=== PATIENT | female | born 1980 | race American Indian/Alaskan Native ===

== ENCOUNTER 2017-01-12 20:16 | Emergency (ER) | payer MEDICAID ==
[2017-01-12] MEDS ORDERED: NACL 0.9% 1000 ML 1,000 ML IV ONE (20:30)
[2017-01-12] MEDS ORDERED: NACL 0.9% 1000 ML 1,000 ML ONE (21:17)
[2017-01-12 21:29] LABS: Basophils % (Auto) 0.8 % (0.0-1.8); Eosinophils % (Auto) 0.2 % (0.0-4.3); Hematocrit 40.9 % (30.3-42.9); Hemoglobin 13.2 gm/dl (10.1-14.3); Mean Corpuscular HGB Conc 32 % (30-34); Mean Corpuscular Volume 80 fl (79-97); Red Blood Count 5.12 M/mm3 (3.65-5.03); Red Cell Distribution Width 14.2 % (13.2-15.2); White Blood Count 8.7 K/mm3 (4.5-11.0)
[2017-01-12 21:30] LABS: Mean Corpuscular Hemoglobin 26 pg (28-32)
[2017-01-12 21:47] LABS: Alanine Aminotransferase 50 units/L (7-56); Albumin 3.2 g/dL (3.9-5); Albumin/Globulin Ratio 1.1 %; Alkaline Phosphatase 70 units/L (35-129); Anion Gap 18 mmol/L; Blood Urea Nitrogen 10 mg/dL (7-17); Calcium 7.7 mg/dL (8.4-10.2); Carbon Dioxide 20 mmol/L (22-30); Chloride 101.7 mmol/L (98-107); Glucose 266 mg/dL (65-100); Sodium 136 mmol/L (137-145)
[2017-01-12 23:04] VITALS: BP 121/67
[2017-01-13 00:59] LABS: Bilirubin,Urine NEG (Negative); Blood,Urine NEG (Negative); Ketones,Urine 20 mg/dL (Negative); Leukocyte Esterase,Urine SM (Negative); Mucus,Urine FEW /HPF; Nitrite,Urine NEG (Negative); Protein,Urine <15 mg/dL mg/dL (Negative); Urobilinogen,Urine < 2.0 mg/dL (<2.0)
--- NOTE | 2017-01-13 01:10 | Emergency Department Report ---
ED Syncope HPI - General Chief Complaint: Syncope Stated Complaint: SYNCOPE/GENERAL WEAKNESS Time Seen by Provider: 01/12/17 21:56 Source: patient Exam Limitations: no limitations - History of Present Illness Initial Comments: 36-year-old female with past history of diabetes presenting to the [facility] complaint of syncopal episode. Patient states early in the day she donated blood and felt a lightheaded throughout the day after. Patient admits while she was at home she went from a seated to standing position and then had a syncopal episode. Patient did not hit her head. Patient states family member was able to get her before she fell and hit her head. Patient states she had brief LOC. When she opened her eyes she was back to her normal mental status. There were no episodes of confusion. There was no generalized jerking her extremities. Patient denies symptoms prior to the episode. Patient denies: headache, neck pain, chest pain, shortness of breath, abdominal pain. Currently patient has no complaints. Patient has no history of DVT/PE. Timing/Prior Episodes: single episode today Precipitating Factors: Positive: none Context: standing Loss of Consciousness: brief (seconds) Current Symptoms: back to normal - Related Data Allergies/Adverse Reactions: Allergies amoxicillin Allergy (Verified 09/18/16 22:18) Itching Home Medications: Ambulatory Orders Acetaminophen/Codeine [Tylenol #3] 1 tab PO Q6H PRN #12 tab 09/19/16 Clindamycin [Clindamycin CAP] 450 mg PO Q8HR #30 capsule 09/19/16 Ibuprofen [Motrin 800 MG tab] 800 mg PO Q8HR PRN #30 tablet 09/19/16 ED Review of Systems ROS: Stated complaint: SYNCOPE/GENERAL WEAKNESS Other details as noted in HPI Constitutional: denies: chills, fever Eyes: denies: eye pain, eye discharge, vision change ENT: denies: ear pain, throat pain Respiratory: denies: cough, shortness of breath, wheezing Cardiovascular: syncope. denies: chest pain, palpitations, dyspnea on exertion , edema, paroxysmal nocturnal dyspnea Endocrine: no symptoms reported Gastrointestinal: denies: abdominal pain, nausea, diarrhea Genitourinary: denies: urgency, dysuria, discharge Musculoskeletal: denies: back pain, joint swelling, arthralgia Skin: denies: rash, lesions Neurological: denies: headache, weakness, paresthesias Psychiatric: denies: anxiety, depression Hematological/Lymphatic: denies: easy bleeding, easy bruising ED Past Medical Hx - Past Medical History Hx Diabetes: Yes (diet) - Surgical History Additional Surgical History: hernia,cholelithiasis - Social History Smoking Status: Never Smoker Substance Use Type: None - Medications Home Medications: Home Medications Medication Instructions Recorded Confirmed Last Taken Type Acetaminophen/Codeine [Tylenol #3] 1 tab PO Q6H PRN #12 tab 09/19/16 Unknown Rx Clindamycin [Clindamycin CAP] 450 mg PO Q8HR #30 capsule 09/19/16 Unknown Rx Ibuprofen [Motrin 800 MG tab] 800 mg PO Q8HR PRN #30 tablet 09/19/16 Unknown Rx ED Physical Exam - General Limitations: No Limitations General appearance: alert, in no apparent distress - Head Head exam: Present: atraumatic, normocephalic - Eye Eye exam: Present: normal appearance - ENT ENT exam: Present: mucous membranes moist - Neck Neck exam: Present: normal inspection - Respiratory Respiratory exam: Present: normal lung sounds bilaterally. Absent: respiratory distress - Cardiovascular Cardiovascular Exam: Present: regular rate, normal rhythm. Absent: systolic murmur, diastolic murmur, rubs, gallop - GI/Abdominal GI/Abdominal exam: Present: soft, normal bowel sounds - Extremities Exam Extremities exam: Present: normal inspection - Back Exam Back exam: Present: normal inspection - Neurological Exam Neurological exam: Present: alert, oriented X3 - Psychiatric Psychiatric exam: Present: normal affect, normal mood - Skin Skin exam: Present: warm, dry, intact, normal color. Absent: rash ED Course Vital Signs 01/12/17 01/12/17 01/12/17 20:55 20:58 21:31 Temperature 97.9 F Pulse Rate 89 86 Respiratory 12 12 12 Rate Blood Pressure 106/76 112/67 [Left] O2 Sat by Pulse 100 100 100 Oximetry 01/12/17 23:03 Temperature Pulse Rate 93 H Respiratory 12 Rate Blood Pressure 121/67 [Left] O2 Sat by Pulse 99 Oximetry - Reevaluation(s) Reevaluation #1: 01/13/17 01:08 She resting comfortably no complaints, she agrees she is stable discharge home. ED Medical Decision Making - Lab Data Result diagrams: 01/12/17 21:14 01/12/17 21:14 - EKG Data -: EKG Interpreted by Me EKG shows normal: sinus rhythm (90), axis (upright ), intervals (QTC 442), QRS complexes (normal ), ST-T waves (no elevation ) - EKG Data Interpretation: no acute changes, normal EKG - Medical Decision Making [age] female past medical history presenting to the emergency Department after syncopal episode. Likely episode secondary to vasovagal reaction. I have low suspicion for PE as patient perked score is negative she has no hypoxia no tachycardia no lower chin edema. I will specific cardiac arrhythmias patient has normal EKG. EKG was not consistent with prolonged QTC, Brugada. Patient agrees her symptoms have remitted and she is stable to dc home and follow up outpt with PCP. Repeat neuro exam prior to D/C : WNL Critical Care Time: No Critical care attestation.: If time is entered above; I have spent that time in minutes in the direct care of this critically ill patient, excluding procedure time. ED Disposition Clinical Impression: Syncope Disposition: DC-01 TO HOME OR SELFCARE Is pt being admited?: No Does the pt Need Aspirin: No Condition: Stable Instructions: Syncope (ED) Referrals: PRIMARY CARE, [Primary Care Provider] - 2-3 Days CLAUDIA DOUGLAS MD, PHD [Staff Physician] - 2-3 Days ARIANNA ELIZABETH MD [Staff Physician] - 2-3 Days Forms: Work/School Release Form(ED) Time of Disposition: 01:11
[2017-01-13 01:34] LABS: Platelet Count 286 K/mm3 (140-440)
== END 2017-01-13 02:00 | disposition home or self-care (01) ==
LOC: ED 20:16
DX: R55 Syncope and collapse (principal); E11.9 Type 2 diabetes mellitus without complications; Z88.1 Allergy status to other antibiotic agents
CPT/HCPCS: 36415; 80053; 81001; 81025; 85025; 93005; 93010; 96360; 99284; J7030

== ENCOUNTER 2017-05-05 01:15 | Emergency (ER) | payer MEDICAID ==
[2017-05-05 02:36] LABS: Basophils % (Auto) 0.8 % (0.0-1.8); Eosinophils % (Auto) 0.6 % (0.0-4.3); Hematocrit 35.4 % (30.3-42.9); Hemoglobin 11.7 gm/dl (10.1-14.3); Mean Corpuscular HGB Conc 33 % (30-34); Mean Corpuscular Hemoglobin 27 pg (28-32); Mean Corpuscular Volume 81 fl (79-97); Platelet Count 283 K/mm3 (140-440); Red Blood Count 4.39 M/mm3 (3.65-5.03); Red Cell Distribution Width 14.3 % (13.2-15.2); White Blood Count 9.3 K/mm3 (4.5-11.0)
[2017-05-05 02:51] LABS: Anion Gap 17 mmol/L; BUN/Creatinine Ratio 13; Blood Urea Nitrogen 12 mg/dL (7-17); Calcium 8.9 mg/dL (8.4-10.2); Carbon Dioxide 23 mmol/L (22-30); Chloride 101.3 mmol/L (98-107); Glucose 271 mg/dL (65-100); Potassium 4.5 mmol/L (3.6-5.0); Sodium 137 mmol/L (137-145)
[2017-05-05 09:50] LABS: Bacteria,Urine 1+ /HPF (Negative); Bilirubin,Urine NEG (Negative); Blood,Urine LG (Negative); Ketones,Urine NEG (Negative); Leukocyte Esterase,Urine TR (Negative); Mucus,Urine FEW /HPF; Nitrite,Urine NEG (Negative); Protein,Urine <15 mg/dL mg/dL (Negative); Urobilinogen,Urine < 2.0 mg/dL (<2.0)
--- NOTE | 2017-05-05 10:32 | Emergency Department Report ---
ED General Adult HPI - General Chief complaint: Chest Pain Stated complaint: CP, shoulder pain, knee pain, vag bleed Time Seen by Provider: 05/05/17 08:51 Source: patient Mode of arrival: Ambulatory Limitations: No Limitations - History of Present Illness -: Gradual Quality: aching Consistency: intermittent Improves with: none Worsens with: other (work; new job that requires her to be on her feet) Associated Symptoms: denies: confusion, chest pain, cough, diaphoresis, fever/ chills, headaches, loss of appetite, malaise, nausea/vomiting, rash, seizure, shortness of breath, syncope, weakness Treatments Prior to Arrival: none - Related Data Previous Rx's Medication Instructions Recorded Last Taken Type metFORMIN [Glucophage] 500 mg PO BID #60 tablet 05/05/17 Unknown Rx Allergies Allergy/AdvReac Type Severity Reaction Status Date / Time amoxicillin Allergy Itching Verified 09/18/16 22:18 ED Review of Systems ROS: Stated complaint: CP Other details as noted in HPI Comment: All other systems reviewed and negative Constitutional: no symptoms reported, see HPI. denies: chills Eyes: as per HPI. denies: eye pain ENT: as per HPI. denies: ear pain, throat pain Respiratory: no symptoms reported, see HPI. denies: cough, orthopnea Cardiovascular: as per HPI. denies: chest pain, palpitations, dyspnea on exertion, orthopnea Endocrine: no symptoms reported, see HPI. denies: excessive sweating, flushing Gastrointestinal: as per HPI. denies: abdominal pain, nausea, vomiting, diarrhea, hematemesis, melena Genitourinary: as per HPI, abnormal menses. denies: urgency, dysuria, frequency , hematuria, discharge, dyspareunia Musculoskeletal: as per HPI, back pain, other (shoulder pain and knee pain; no fall) Skin: as per HPI. denies: rash, lesions Neurological: as per HPI. denies: headache, weakness Psychiatric: as per HPI. denies: anxiety, depression Hematological/Lymphatic: as per HPI. denies: easy bleeding ED Past Medical Hx - Past Medical History Previous Medical History?: Yes Hx Diabetes: Yes (diet) Additional medical history: fibroids - Surgical History Hx Cholecystectomy: Yes Additional Surgical History: hernia - Social History Smoking Status: Never Smoker Substance Use Type: None - Medications Home Medications: Home Medications Medication Instructions Recorded Confirmed Last Taken Type metFORMIN [Glucophage] 500 mg PO BID #60 tablet 05/05/17 Unknown Rx ED Physical Exam - General Limitations: No Limitations General appearance: alert, in no apparent distress - Head Head exam: Present: normocephalic - Eye Eye exam: Present: PERRL - ENT ENT exam: Present: normal exam, mucous membranes moist - Neck Neck exam: Present: normal inspection - Respiratory Respiratory exam: Present: normal lung sounds bilaterally - Cardiovascular Cardiovascular Exam: Present: regular rate - GI/Abdominal GI/Abdominal exam: Present: soft, normal bowel sounds. Absent: distended, tenderness, guarding, rebound, rigid, diminished bowel sounds, hyperactive bowel sounds, hypoactive bowel sounds, organomegaly, mass, bruit, pulsatile mass , hernia - Rectal Rectal exam: Present: deferred - Extremities Exam Extremities exam: Present: normal inspection, full ROM, normal capillary refill. Absent: tenderness, pedal edema, joint swelling - Back Exam Back exam: Present: normal inspection, full ROM. Absent: tenderness, CVA tenderness (R), CVA tenderness (L) - Neurological Exam Neurological exam: Present: alert, oriented X3, CN II-XII intact - Psychiatric Psychiatric exam: Present: normal affect, normal mood, other (mom and dad both ill; inc stress) ED Course Vital Signs 05/05/17 05/05/17 01:28 10:36 Temperature 98.2 F 98.2 F Pulse Rate 82 65 Respiratory 20 16 Rate Blood Pressure 111/65 Blood Pressure 123/59 [Left] O2 Sat by Pulse 98 98 Oximetry - Reevaluation(s) Reevaluation #1: 05/05/17 to er today w numerous complaints in wr for hours then to ft taking po vss nad not taking her metformin under stress w fam illness no fall labs noted trop neg x 3 abd snt full rom of shoulder and knee states new job too much for her that it makes her hurt everywhere bc she stands her vag bleed in not new hx fibroids not h/h stable no uti dc home w dc poc ED Medical Decision Making - Lab Data Result diagrams: 05/05/17 01:40 05/05/17 01:40 - EKG Data EKG shows normal: sinus rhythm Rate: normal - EKG Data Interpretation: no acute changes - Medical Decision Making see note - Differential Diagnosis acs v stress v iup Critical care attestation.: If time is entered above; I have spent that time in minutes in the direct care of this critically ill patient, excluding procedure time. ED Disposition Clinical Impression: Hyperglycemia, Medical non-compliance, Anxiety, DUB (dysfunctional uterine bleeding), Knee pain, Uterine fibroid, DM hyperosmolarity type II, uncontrolled Disposition: - TO HOME OR SELFCARE Is pt being admited?: No Does the pt Need Aspirin: No Condition: Stable Instructions: Dysmenorrhea (ED), Diabetes Mellitus Type 2 in Adults (ED), Hyperglycemia, Non-Diabetic (ED) Additional Instructions: GET SUPPORT SHOES FOR NEW JOB IT WILL HELP YOU TOLERATE STANDING MOTRIN OR TYLENOL FOR PAIN DIABETIC DIET WALK AND EXERCISE METFORMIN FOLLOW UP WITH PCP HYDRATE WELL FOLLOW UP OBGYN FOR YOUR ABNORMAL PERIODS Prescriptions: metFORMIN [Glucophage] 500 mg PO BID #60 tablet Referrals: PRIMARY CAREMD [Primary Care Provider] - 3-5 Days HOLLY SALINAS MD [Staff Physician] - 3-5 Days JOÃO CARTY MD [Staff Physician] - 3-5 Days YUNIEL LEE MD [Staff Physician] - 3-5 Days Forms: Work/School Release Form(ED) Time of Disposition: 10:31
[2017-05-05 10:37] VITALS: BP 123/59
== END 2017-05-05 10:38 | disposition home or self-care (01) ==
LOC: ED 01:15
DX: E11.65 Type 2 diabetes mellitus with hyperglycemia (principal); N93.8 Other specified abnormal uterine and vaginal bleeding; D25.9 Leiomyoma of uterus, unspecified; E11.00 Type 2 diabetes mellitus with hyperosmolarity without nonketotic hyperglycemic-hyperosmolar coma (NKHHC); F41.9 Anxiety disorder, unspecified; M25.562 Pain in left knee; Z88.1 Allergy status to other antibiotic agents
CPT/HCPCS: 36415; 80048; 81001; 81025; 82962; 84484; 85025; 93005; 93010; 99284